=== PATIENT | male | born 1970 | race Caucasian/White ===

== ENCOUNTER 2018-12-10 22:30 | Emergency (ER) | payer OTHER ==
[~2018-12-10] VITALS: Ht 188 cm; Wt 104.3 kg
--- NOTE | 2018-12-10 22:50 | NUR ---
DR HUTCHINSON AT BEDSIDE FOR MSE
[2018-12-10] MEDS ORDERED: IBUPROFEN 800 MG TABLET ONE (22:55)
[2018-12-10] MEDS ORDERED: IBUPROFEN 800 MG TABLET PO ONE (23:00)
--- NOTE | 2018-12-11 00:51 | NUR ---
Patient discharged to home in stable conditon. Written and verbal after care instructions given. Patient verbalizes understanding of instructions. Pt walked out of ER with stable gait. Left arm sling given. Directions provided. Belongings with pt. No acute distress noted.
[2018-12-11 00:52] VITALS: BP 121/84
== END 2018-12-11 00:45 | disposition home or self-care (01) ==
LOC: ER 22:30
DX: S20.212A Contusion of left front wall of thorax, initial encounter (principal); S49.92XA Unspecified injury of left shoulder and upper arm, initial encounter; Z90.49 Acquired absence of other specified parts of digestive tract; W01.0XXA Fall on same level from slipping, tripping and stumbling without subsequent striking against object, initial encounter; Y93.89 Activity, other specified; Y92.89 Other specified places as the place of occurrence of the external cause; Y99.8 Other external cause status
CPT/HCPCS: 71101; 73030; A4663

== ENCOUNTER 2019-06-11 21:38 | Emergency (ER) | payer OTHER ==
[~2019-06-11] VITALS: Ht 188 cm; Wt 102.1 kg
--- NOTE | 2019-06-11 21:50 | NUR ---
PATIENT WAS MSE BY ARA IN ROOM 04A. PATIENT A & O X3.
[2019-06-11] MEDS ORDERED: IBUPROFEN 600 MG TABLET ONE (23:12)
[2019-06-11] MEDS ORDERED: IBUPROFEN 600 MG TABLET PO ONE (23:15)
--- NOTE | 2019-06-11 23:18 | NUR ---
Patient discharged to home in stable condition. Written and verbal after care instructions given. Patient verbalizes understanding of instructions. Stressed follow up or return to ER for worsening s/s.
[2019-06-11 23:20] VITALS: BP 121/77
== END 2019-06-11 23:22 | disposition home or self-care (01) ==
LOC: ER 21:39
DX: S09.90XA Unspecified injury of head, initial encounter (principal); Y04.2XXA Assault by strike against or bumped into by another person, initial encounter; Y93.89 Activity, other specified; Y92.521 Bus station as the place of occurrence of the external cause; R51 Headache; M54.2 Cervicalgia
CPT/HCPCS: 70450; 72125; A4663

== ENCOUNTER 2019-12-04 03:14 | Emergency (ER) | payer OTHER ==
[~2019-12-04] VITALS: Ht 188 cm; Wt 98.4 kg
[2019-12-04] MEDS: NITROGLYCERIN 0.4 MG/TAB BOTTLE SL ONE (03:39)
[2019-12-04] MEDS ORDERED: NITROGLYCERIN 0.4 MG/TAB BOTTLE SL ONE (03:40)
[2019-12-04 03:41] LABS: BASOPHILS # (AUTO) 0.1 K/uL (0.0-8.0); EOSINOPHILS # (AUTO) 0.5 K/uL (0.0-0.7); EOSINOPHILS % (AUTO) 4.3 % (0.0-7.0); HEMATOCRIT 47.4 % (36.7-47.1); HEMOGLOBIN 16.2 g/dL (12.5-16.3); LYMPHOCYTES % (AUTO) 24.9 % (20.5-51.5); MEAN CORPUSCULAR HEMOGLOBIN 30.1 uug (23.8-33.4); MEAN CORPUSCULAR HGB CONC 34 g/dL (32.5-36.3); MEAN CORPUSCULAR VOLUME 88.3 fL (73.0-96.2); MONOCYTES # (AUTO) 1.3 K/uL (2.0-10.0); MONOCYTES % (AUTO) 10.2 % (0.0-11.0); NEUTROPHILS # (AUTO) 7.3 K/uL (1.8-8.9); NEUTROPHILS % (AUTO) 59.6 % (38.5-71.5); PLATELET COUNT (AUTO) 401 K/uL (152-348); RED BLOOD CELL COUNT(AUTO) 5.37 MIL/uL (4.06-5.63); WHITE BLOOD COUNT (AUTO) 12.3 K/uL (3.6-10.2)
[2019-12-04 03:43] LABS: CREATININE 1.2 mg/dL (0.6-1.3); POTASSIUM 3.8 mmol/L (3.5-5.1)
[2019-12-04] MEDS ORDERED: MORPHINE SULFATE 2 MG/1 ML DISP.SYRIN ONE (03:46)
[2019-12-04] MEDS ORDERED: ONDANSETRON 4 MG/2 ML VIAL ONE (03:46)
[2019-12-04] MEDS: ONDANSETRON 4 MG/2 ML VIAL IV ONE (03:47)
[2019-12-04] MEDS: MORPHINE SULFATE 2 MG/1 ML DISP.SYRIN IV ONE (03:47)
[2019-12-04 03:56] LABS: BILIRUBIN,DIRECT 0.1 mg/dL (0.0-0.2); BILIRUBIN,TOTAL 0.3 mg/dL (0.2-1.0); TOTAL PROTEIN, SERUM 6.2 g/dL (6.4-8.2)
[2019-12-04] MEDS: IBUPROFEN 600 MG TABLET PO ONE (05:08)
[2019-12-04] MEDS ORDERED: IBUPROFEN 600 MG TABLET ONE (05:12)
[2019-12-04 05:22] VITALS: BP 117/83
== END 2019-12-04 05:23 | disposition home or self-care (01) ==
LOC: ER 03:16
DX: R07.89 Other chest pain (principal); E78.00 Pure hypercholesterolemia, unspecified; Z82.49 Family history of ischemic heart disease and other diseases of the circulatory system
CPT/HCPCS: 36415; 70030-TC; 71045; 85025; 85730; 93005; A4663; J2270; J2405; U0003

== ENCOUNTER 2023-02-13 21:31 | Emergency (ER) | payer OTHER ==
[~2023-02-13] VITALS: Ht 188 cm; Wt 102.1 kg
[~2023-02-13 21:31] MED LIST: DOXY100T2 PO
[2023-02-13] MEDS ORDERED: PROMETHAZINE HCL 25 MG TABLET PO STA (21:55)
[2023-02-13] MEDS ORDERED: FAMOTIDINE 20 MG TABLET PO ONE (22:00)
[2023-02-13] MEDS ORDERED: FAMOTIDINE 20 MG TABLET ONE (22:35)
[2023-02-13] MEDS ORDERED: METO-295 PO (23:08)
[2023-02-13] MEDS ORDERED: OMEP40CA21 PO (23:08)
[2023-02-13 23:18] VITALS: BP 129/89; O2SAT 96
== END 2023-02-13 23:19 | disposition home or self-care (01) ==
LOC: ER 21:33
DX: G89.29 Other chronic pain (principal); R05.9 Cough, unspecified; E78.00 Pure hypercholesterolemia, unspecified; K21.9 Gastro-esophageal reflux disease without esophagitis; Z79.899 Other long term (current) drug therapy
CPT/HCPCS: 71045; A4606; A4663